=== PATIENT | male | born 1990 | race Caucasian/White ===

== ENCOUNTER 2017-11-08 02:51 | Day surgery (SDC) | payer OTHER ==
[2017-11-08] VITALS (7 sets, daily range): BP systolic 111–130; BP diastolic 69–84
[~2017-11-08] VITALS: Ht 177.8 cm; Wt 76.2 kg
[~2017-11-08 02:51] MED LIST: HYDR-4309 PO; METH27ERPT PO; NAPR-1043 PO; OMEP-218 PO; SUMA25TA26 PO
[2017-11-08] MEDS: NORMOSOL R SOLN(*) 1000 ML BAG 1,000 ML IV PRN ×2 (13:03→17:43)
[2017-11-08] MEDS ORDERED: ROPIVACAINE 0.2% 20 ML VIAL ONE ×2 (13:28→13:40)
[2017-11-08] MEDS ORDERED: LIDOCAINE MPF 1% 5 ML VIAL ONE (13:37)
[2017-11-08] MEDS ORDERED: MIDAZOLAM 2 MG/2 ML VIAL ONE (13:37)
[2017-11-08] MEDS ORDERED: fentaNYL CITR 100 MCG/2 ML AMP ONE (13:37)
[2017-11-08] MEDS ORDERED: PROPOFOL EMUL(*) 10MG/ML 20 ML 20 ML ONE (13:37)
[2017-11-08] MEDS ORDERED: ONDANSETRON 4 MG/2 ML VIAL ONE (13:37)
[2017-11-08] MEDS ORDERED: DEXAMETHASONE SOD PHOS 10MG/ML ONE (13:37)
[2017-11-08] MEDS ORDERED: EPINEPHrine HCL 1 MG/ML AMP ONE (13:40)
[2017-11-08] MEDS ORDERED: CELECOXIB 200 MG CAP PO ONE (14:00)
[2017-11-08] MEDS ORDERED: FAMOTIDINE 20 MG TAB PO ONE (14:00)
[2017-11-08] MEDS ORDERED: ceFAZolin(*) 1 GM VIAL 1 GM in NS(*) 0.9% 100 ML ADDVANT BAG 100 ML IVPB ONE (14:00)
[2017-11-08] MEDS ORDERED: LIDOCAINE/SOD BICARB 8.4% SYR ID ONE (14:00)
[2017-11-08] MEDS ORDERED: MIDAZOLAM 2 MG/2 ML VIAL IVP PRN (14:00)
[2017-11-08] MEDS ORDERED: KET10 PO (16:40)
[2017-11-08] MEDS ORDERED: KETOROLAC 30 MG/ML VIAL ONE (16:41)
[2017-11-08] MEDS ORDERED: OXY IR PO (16:47)
--- NOTE | 2017-11-09 17:09 | OPERATIVE REPORT 1 ---
EVENT DATE: November 08, 2017 SURGEON: Vinicio Koehler MD ANESTHESIOLOGIST: Luis Aiken MD ANESTHESIA: Right interscalene block, followed by general. PAYROLL PROCESSOR: GERARDO Lazaro PREOPERATIVE DIAGNOSIS Right shoulder anteroinferior instability, chronic. POSTOPERATIVE DIAGNOSIS Right shoulder anteroinferior instability, chronic, with posterior labral tearing. PROCEDURE PERFORMED Right shoulder arthroscopy with posterior labral repair, followed by anteroinferior labral repair. SPECIMENS None. COMPLICATIONS None. IMPLANTS USED [employer] 1.5 mm Juggernaut Suture Anchors. BLOOD LOSS Minimal. DESCRIPTION OF PROCEDURE Patient received appropriate preoperative antibiotic. He was brought to the OR where Dr. Aiken right interscalene block, followed by general anesthesia. Patient was placed in the left lateral decubitus position with right shoulder up with appropriate padding and positioners. Right shoulder was then prepped and draped in the usual sterile fashion and then placed in 12 pounds of traction. The joint was injected from posterior approach with arthroscopic fluid, followed by establishment of our posterior portal. Through an outside- in technique, we established our anterior portal. Subscapularis and biceps were intact as well as the biceps anchor. We noted posterior labral and anteroinferior labral tearing. There were no loose bodies in the axillary pouch. There was a positive drive-through sign. Teres minor, infraspinatus, and supraspinatus were grossly intact. Through the anterior portal, labral elevator was utilized to delineate the anteroinferior tear, which was a Bankart soft tissue type from approximately 4 to 5 o'clock. This was then rasped and then shaved to a stable base. We switched the scope to anterior while we instrumented posteriorly. We established an 8.5 mm cannula posteriorly, and through this, we utilized the labral elevator to elevate the labrum from approximately 8 to 11 o'clock. We then rasped this and shaved this. Started about 8:30, we placed our first anchor at the articular cartilage-labrum interface. We then utilized the Spectrum 90-degree suture passer to incorporate a portion of the capsule and the labrum, and we tied this arthroscopically, knot away from the articular surface. We then placed a second anchor in approximately 9:30. We used a 22-degree [employer] suture passer to incorporate a small portion of capsule labrum, grab one of our sutures , bring this out to the cannula, then we tied this arthroscopically again bringing the knot away from the face. We placed our third anchor at approximately 10:30 again at the labral-articular cartilage interface. We utilized the reverse 90-degree Spectrum suture passer to incorporate a small portion of capsule in the labrum, tied this down arthroscopically, and we repaired this affected area satisfactorily. It was now stable and creating a bumper. We then once again switched the scope so we were viewing posteriorly to anteriorly. We placed our 8.5 mm cannula anteriorly. We established in the central portion of the tear at approximately 4:30 his anchor at the labral- articular cartilage interface. Utilizing the right curved 90-degree Spectrum suture passer, we passed our PDS incorporating capsule labrum, and passed our suture, then tied this arthroscopically keeping the knot away from the articular face, creating a soft tissue bumper and repairing of labrum. We had a negative drive-through sign at this point. Instrumentation was removed. Portal was closed subcutaneously with 4-0 Monocryl, followed by Steri-Strips, injection of the portals with ropivacaine, followed by dressing, and a neutral wedge sling. Patient was extubated and taken to recovery in stable condition. Tylenol, Toradol, and Oxy IR are prescribed. There will be no therapy. He can change the dressings and take a shower Wednesday morning. We will see him Wednesday afternoon in [facility]. REYNA
== END 2017-11-08 17:30 | disposition home or self-care (01) ==
LOC: OR 02:51
PROVIDERS: ATTEND Orthopaedic Surgery
DX: S43.401A Unspecified sprain of right shoulder joint, initial encounter (principal); M25.311 Other instability, right shoulder
CPT/HCPCS: 29807; J0171; J0690; J1100; J1885; J2001; J2250; J2405; J2704; J2795; J3010; J7050